=== PATIENT | female | born 1975 | race Caucasian/White ===

== ENCOUNTER 2017-02-12 06:58 | Inpatient (IN) ==
--- NOTE | 2017-02-12 07:10 | Emergency Department Report ---
Asthma HPI - General Chief Complaint: Upper Respiratory Infection Stated Complaint: diff breathing Time Seen by Provider: 02/12/17 07:09 Source: patient, family Mode of arrival: ambulatory Limitations: no limitations - History of Present Illness HPI Narrative: Patient is a 41-year-old female CHF COPD. Patient presents the ER for evaluation of difficulty breathing. Patient was seen with mild difficulty breathing 3 days ago in the emergency department given DuoNeb with improvement of symptoms. Patient was discharged home on prednisone. Patient follow-up primary medical physician on Friday, was given a nebulizer and 2 nebs at home, however has not been improving. Patient increasing shortness of air for the last 2 days, this morning significant shortness of air so decided present to the ER for evaluation. On arrival patient oxygen saturation 88%, placed on 2 L by nasal cannula. MD complaint: shortness of breath, wheezing Onset (ago): day(s) (3-4 days) Severity: moderate Associated symptoms: productive cough Treatments Prior to Arrival: inhaled bronchodilator - Related Data Home Medications Medication Instructions Recorded Confirmed Cholecalciferol (Vitamin D3) 5,000 unit PO DAILY 01/12/17 03/05/17 [Vitamin D3] Furosemide [Lasix] 20 mg PO BID 01/12/17 03/05/17 Levothyroxine Sodium 100 mcg PO ACB 01/12/17 03/05/17 Linagliptin [Tradjenta] 5 mg PO DAILY 01/12/17 03/05/17 Loratadine [Claritin] 10 mg PO DAILY 01/12/17 03/05/17 Pantoprazole Tab [Protonix Tab] 20 mg PO ACB 01/12/17 03/05/17 Pregabalin [Lyrica] 200 mg PO TID 01/12/17 03/05/17 Venlafaxine HCl [Venlafaxine HCl 37.5 mg PO DAILY 01/12/17 03/05/17 ER] Hydrocodone/APAP 7.5/325 [[place] 1 tab PO Q6HPRN PRN 01/13/17 03/05/17 7.5/325] Fluticasone/Salmeterol 250/50 1 puff INH BID 02/23/17 03/05/17 [Advair 250-50 Diskus] Insulin Glargine,Hum.rec.anlog 20 unit SQ AMI 02/23/17 03/05/17 [Grant Bacon] Insulin Glargine,Hum.rec.anlog 50 unit SQ HS 02/23/17 03/05/17 [Toumineo Solostar] Ipatropium/Albuterol [Combivent 1 puff INH QID 02/23/17 03/05/17 Respimat Inhaler] Klor-Con Sprinkle (potassium 20 meq PO DAILY cap 03/10/17 chloride ER) 10 mEq capsule Zantac (Ranitidine) 150 mg capsule 150 mg PO HS cap 03/10/17 trazodone 50 mg tablet 50 mg PO HS tab 03/10/17 Previous Rx's Medication Instructions Recorded Lisinopril [Prinivil] 5 mg PO HS #30 tab 02/17/17 OneTouch Verio strips See Dose Instructions .ROUTE 03/10/17 .MEDSUPPLY #150 each NS lancets 33 gauge See Dose Instructions .ROUTE 03/10/17 .MEDSUPPLY #150 each Allergies Allergy/AdvReac Type Severity Reaction Status Date / Time celecoxib Allergy Unknown Verified 03/10/17 08:36 cephalexin Allergy Unknown Rash Verified 03/10/17 08:36 Iodinated Contrast- Oral and Allergy Unknown Hives Verified 03/10/17 08:36 IV Dye tramadol Allergy Unknown Shortness Verified 03/10/17 08:36 of Breath (Air) Sulfa (Sulfonamide Allergy Hives Verified 03/10/17 08:36 Antibiotics) Review of Systems Constitutional: Reports: weakness. Denies: fever, chills ENT: Denies: throat pain, dental pain Cardiovascular: Reports: chest pain, dyspnea on exertion. Denies: palpitations Respiratory: Reports: cough, dyspnea, wheezes Gastrointestinal: Denies: abdominal pain, nausea, vomiting Genitourinary: Denies: dysuria, frequency Musculoskeletal: Denies: back pain, joint swelling Neurological: Reports: headache. Denies: weakness Psychiatric: Reports: auditory hallucinations. 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 Need to see glucose profile. Will need another medication added as well. Diabetic peripheral neuropathy associated with type 2 diabetes mellitus ( Chronic Medical ~03/10/17) Needs better glucose control. Callus of foot (Chronic Medical ~03/10/17) Needs emollient. Hypothyroidism (Chronic Medical ~2014) Need to check levels. Nontoxic single thyroid nodule (Chronic Medical ~2014) Small, nonpalpable. Should characterize with sonogram, then rebiopsy if necessary. Morbid obesity with BMI of 40.0-44.9, adult (Chronic Medical) Surgical History: excision of hemorrhiods Family History: Family History (Last Reviewed 03/10/17 @ 08:48 by Ignacio Pond MD) Father Diabetes Heart disease Mother Heart attack - Social History Smoking status: Current every day smoker Substance use type: does not use Physical Exam - Limitations Limitations: no limitations - General General appearance: alert, in no apparent distress - ENT ENT exam: Present: normal oropharynx, mucous membranes moist - Neck Neck exam: Present: trachea midline - Chest Chest inspection: Present: symmetric chest wall rise. Absent: tenderness - Respiratory Respiratory exam: Present: respiratory distress, wheezes, accessory muscle use, prolonged expiratory phase. Absent: normal lung sounds bilaterally - Cardiovascular Cardiovascular exam: Present: regular rate, normal rhythm, normal heart sounds - Abdominal Exam Abdominal exam: Present: soft. Absent: distention - Back Exam Back exam: Present: full ROM. Absent: tenderness, CVA tenderness (R) - Skin Skin exam: Present: warm, dry - Neurological Exam Neurological exam: Present: alert, oriented X3 - Psychiatric Psychiatric exam: Present: normal affect, normal mood Course Vital Signs Temperature 99.5 F 02/12/17 07:07 Pulse Rate 109 H 02/12/17 07:07 Respiratory Rate 26 H 02/12/17 07:07 Blood Pressure 130/67 02/12/17 07:07 Pulse Oximetry 88 L 02/12/17 07:07 Temperature 96.3 F L 02/17/17 07:47 Pulse Rate 75 02/17/17 07:47 Respiratory Rate 16 02/17/17 16:39 Blood Pressure 119/79 02/17/17 07:47 Pulse Oximetry 93 02/17/17 11:24 Dyspnea - Differential Diagnosis Differential diagnosis: Likely: Acute exacerbation, Status asthmaticus, Acute asthmatic bronchitis, Pneumonia, COPD exacerbation, Pulmonary edema systolic, Pulmonary edema dystolic - Medical Records Attestation: I reviewed the patient's medical records. - Lab Data Attestation: I reviewed the patient's lab results. Result diagrams: 02/16/17 04:31 02/16/17 04:31 Lab Results 02/12/17 02/12/17 02/12/17 Range/Units 07:56 07:56 07:56 WBC 27.7 H* (4.5-11.0) T/MM3 RBC 4.92 (4.00-5.20) M/MM3 Hgb 12.5 (12-16) GM/DL Hct 39.5 (36-46) % MCV 80.3 (80-100) UM3 MCH 25.4 L (26-34) UUG MCHC 31.6 (31-37) GM/DL RDW Std Deviation 48.2 (36.9-50.2) FL Plt Count 359 (130-400) T/MM3 MPV 9.3 L (9.4-12.4) UM3 Immature Gran % (Auto) Not performed Neut % (Auto) Not performed Lymph % (Auto) Not performed [place] % (Auto) Not performed Eos % (Auto) Not performed Baso % (Auto) Not performed Neut # Not performed Lymph # Not performed [place] # Not performed Eos # Not performed Baso # Not performed Abs Immat Gran (auto) Not performed Neutrophils % (Manual) 70.0 H (33-66) % Band Neutrophils % 1.0 (0-6) % Lymphocytes % (Manual) 22.0 L (23-45) % Monocytes % (Manual) 5.0 (0-9.0) % Eosinophils % (Manual) 1.0 (0-4) % Metamyelocytes % 1.0 H (0-0) % Neutrophils # (Manual) 19.4 H (1.8-7.7) T/MM3 Band Neutrophils # 0.3 T/MM3 Lymphocytes # (Manual) 6.1 H (1-4.8) T/MM3 Monocytes # (Manual) 1.4 H (0-0.8) T/MM3 Eosinophils # (Manual) 0.3 (0-0.5) T/MM3 Metamyelocytes # 0.3 T/MM3 Poikilocytosis 1+ Anisocytosis 1+ RBC Morph Comment Abnormal D-Dimer < 150 (0-230) NG/ML ABG pH (7.350-7.450) ABG pCO2 (34-45) MMHG ABG pO2 (80-100) MMHG ABG HCO3 (22-26) MEQ/L ABG Total CO2 (23-27) MEQ/L ABG O2 Saturation (95.0-98.0) % ABG Base Excess (-2.0-2.0) MMOL/L O2 Delivery Method FiO2 (liters per min) Turbidity < 20 (0-20) Sodium 141 (134-144) MEQ/L Potassium 3.1 L (3.6-5) MEQ/L Chloride 99 (98-107) MEQ/L Carbon Dioxide 29 (22-30) MEQ/L Anion Gap 13 (5-15) MEQ/L BUN 8.0 (7-17) MG/DL Creatinine 0.6 L (0.7-1.2) MG/DL GFR Calculation 111 BUN/Creatinine Ratio 13 (6-26) RATIO Glucose 177 H (65-110) MG/DL Calculated Osmolality 273 (261-280) MOSM/KG Calcium 9.2 (8.4-10.2) MG/DL Total Bilirubin 0.50 (0.20-1.30) MG/DL Icterus Index < 2 (0-7) AST 25 (14-36) U/L ALT 32 (9-52) U/L Alkaline Phosphatase 79 (38-126) U/L Troponin I < 0.012 (0-0.12) ng/ml B-Natriuretic Peptide 220 H (0-175) pg/mL Total Protein 6.8 (6.3-8.2) G/DL Albumin 3.8 (3.5-5.0) G/DL Globulin 3.0 (2.4-3.6) G/DL Albumin/Globulin Ratio 1.3 (1.1-2.2) RATIO Specimen Hemolysis < 15 (0-25) Adenovirus (PCR) (Negative) B.parapertussis DNA PCR (Negative) C. pneumoniae DNA (PCR) (Negative) Coronavirus OC43 (PCR) (Negative) Coronavirus HKU1 (PCR) (Negative) Coronavirus 229E (PCR) (Negative) Coronavirus NL63 (PCR) (Negative) Human Metapneumovirus (Negative) Influenza Type A (PCR) (Negative) Influenza Type B (PCR) (Negative) M. pneumoniae (PCR) (Negative) Parainfluenza 1 (PCR) (Negative) Parainfluenza 2 (PCR) (Negative) Parainfluenza 3 (PCR) (Negative) Parainfluenza 4 (PCR) (Negative) RSV (PCR) (Negative) Entero/Rhino (PCR) (Negative) 02/12/17 02/12/17 Range/Units 07:56 09:30 WBC (4.5-11.0) T/MM3 RBC (4.00-5.20) M/MM3 Hgb (12-16) GM/DL Hct (36-46) % MCV (80-100) UM3 MCH (26-34) UUG MCHC (31-37) GM/DL RDW Std Deviation (36.9-50.2) FL Plt Count (130-400) T/MM3 MPV (9.4-12.4) UM3 Immature Gran % (Auto) Neut % (Auto) Lymph % (Auto) [place] % (Auto) Eos % (Auto) Baso % (Auto) Neut # Lymph # [place] # Eos # Baso # Abs Immat Gran (auto) Neutrophils % (Manual) (33-66) % Band Neutrophils % (0-6) % Lymphocytes % (Manual) (23-45) % Monocytes % (Manual) (0-9.0) % Eosinophils % (Manual) (0-4) % Metamyelocytes % (0-0) % Neutrophils # (Manual) (1.8-7.7) T/MM3 Band Neutrophils # T/MM3 Lymphocytes # (Manual) (1-4.8) T/MM3 Monocytes # (Manual) (0-0.8) T/MM3 Eosinophils # (Manual) (0-0.5) T/MM3 Metamyelocytes # T/MM3 Poikilocytosis Anisocytosis RBC Morph Comment D-Dimer (0-230) NG/ML ABG pH 7.510 H (7.350-7.450) ABG pCO2 40 (34-45) MMHG ABG pO2 55 L (80-100) MMHG ABG HCO3 32 H (22-26) MEQ/L ABG Total CO2 33.1 H (23-27) MEQ/L ABG O2 Saturation 91.0 L (95.0-98.0) % ABG Base Excess 8.2 H (-2.0-2.0) MMOL/L O2 Delivery Method Nasal cannula, liter FiO2 (liters per min) 6 Turbidity (0-20) Sodium (134-144) MEQ/L Potassium (3.6-5) MEQ/L Chloride (98-107) MEQ/L Carbon Dioxide (22-30) MEQ/L Anion Gap (5-15) MEQ/L BUN (7-17) MG/DL Creatinine (0.7-1.2) MG/DL GFR Calculation BUN/Creatinine Ratio (6-26) RATIO Glucose (65-110) MG/DL Calculated Osmolality (261-280) MOSM/KG Calcium (8.4-10.2) MG/DL Total Bilirubin (0.20-1.30) MG/DL Icterus Index (0-7) AST (14-36) U/L ALT (9-52) U/L Alkaline Phosphatase (38-126) U/L Troponin I (0-0.12) ng/ml B-Natriuretic Peptide (0-175) pg/mL Total Protein (6.3-8.2) G/DL Albumin (3.5-5.0) G/DL Globulin (2.4-3.6) G/DL Albumin/Globulin Ratio (1.1-2.2) RATIO Specimen Hemolysis (0-25) Adenovirus (PCR) Negative (Negative) B.parapertussis DNA PCR Negative (Negative) C. pneumoniae DNA (PCR) Negative (Negative) Coronavirus OC43 (PCR) Negative (Negative) Coronavirus HKU1 (PCR) Negative (Negative) Coronavirus 229E (PCR) Negative (Negative) Coronavirus NL63 (PCR) Negative (Negative) Human Metapneumovirus Negative (Negative) Influenza Type A (PCR) Negative (Negative) Influenza Type B (PCR) Negative (Negative) M. pneumoniae (PCR) Negative (Negative) Parainfluenza 1 (PCR) Negative (Negative) Parainfluenza 2 (PCR) Negative (Negative) Parainfluenza 3 (PCR) Negative (Negative) Parainfluenza 4 (PCR) Negative (Negative) RSV (PCR) Negative (Negative) Entero/Rhino (PCR) Detected A (Negative) - Radiology Data Attestation: I reviewed the patient's radiology results. Chest x-ray: Improved edema cardiomegaly, no acute infiltrates - EKG Data EKG #1 EKG attestation: Yes: I reviewed and interpreted this EKG. Rate [ED.COU.EKR]: tachycardia Rhythm: NSR [place]/QRS: normal Interpretation: no acute changes Disposition Clinical Impression: COPD, Rhinovirus Disposition: 02 To [facility] [place] Acute Care Condition: Improved - Seen By: physician
[2017-02-12] MEDS ORDERED: METHYLPREDNISOLONE SOD SUCC 125mg/2ml INJECTION IVP ONE (07:13)
[2017-02-12] MEDS ORDERED: ALBUTEROL/IPRATROPIUM 2.5mg-0.5mg/3ml NEB IH ONE (07:13)
[2017-02-12] MEDS ORDERED: BENZONATATE 100 MG CAPSULE PO ONE (07:14)
[2017-02-12] MEDS ORDERED: ALBUTEROL/IPRATROPIUM 2.5mg-0.5mg/3ml NEB AEROSOL ONE (07:19)
--- NOTE | 2017-02-12 07:52 | XRay Report ---
INDICATION: cough shortness of air wheezing O2 requiring PROCEDURE: CHEST 2-VIEWS UPRIGHT (PA & LAT) Encounter: Initial COMPARISON: February 08, 2017 FINDINGS: New patchy areas of bilateral airspace consolidation. No pleural effusion or pneumothorax. Heart size and mediastinal contours are stable. Poststernotomy changes. Impression: New bilateral airspace disease could be due to atypical/viral pneumonia. .
[2017-02-12] MEDS ORDERED: ACETAMINOPHEN 500 MG TABLET PO ONE (08:21)
[2017-02-12] MEDS ORDERED: ALBUTEROL 2.5mg/3ml (0.083%) NEB AEROSOL ONE (08:45)
[2017-02-12] MEDS ORDERED: HYDROCORTISONE 2.5% CREAM 30gm RECTALLY PRN (10:06)
[2017-02-12] MEDS ORDERED: HYDROCORTISONE 1% CREAM 28.35gm TOP PRN (10:06)
[2017-02-12] MEDS: HYDROCODONE/APAP 7.5 MG/325 MG TABLET PO PRN ×2 (11:46→21:52)
[2017-02-12] MEDS: LEVOFLOXACIN PB 750 MG/150 ML BAG IV SCH (11:46)
[2017-02-12] MEDS: INSULIN REGULAR, HUMAN 100 UNIT/ML INJECTION SQ PRN ×3 (11:53→20:35)
[2017-02-12] MEDS: AMLODIPINE 5 MG TABLET PO SCH (13:05)
[2017-02-12] MEDS: ALBUTEROL/IPRATROPIUM 2.5mg-0.5mg/3ml NEB ORAL INH SCH ×3 (13:41→19:21)
[2017-02-12] MEDS: PREGABALIN 100 MG CAPSULE PO SCH ×2 (15:50→20:25)
--- NOTE | 2017-02-12 15:52 | History & Physical Report ---
History of Present Illness Date: 02/12/17 Chief complaint: Shortness of breath HPI: Called to examine pt in the ED due to acute bronchospasm and respiratory failure. Pt was on BiPap when I saw her in the ED. Pt was mentally clear, awake alert and oriented. She states she was smoking till last week when she decided to quit. Pt got worse over the last 24 hrs - denies any household contacts, has not been [place], denies having exotic pets, gives H.O asthma in the past. Pt is a FULL CODE> Review of Systems Comprehensive ROS: completed and no additional positive findings except those as stated PFSH Patient Stated Medical History Congestive Heart Failure Yes Hypertension Yes Other Cardiology Yes: ATRIAL SEPTAL DEFECT CHILD Bronchitis Yes: Jan 2017 Chronic Obstructive Pulmonary Yes Disease (COPD) Sleep Apnea Yes Diabetes Mellitus Type 2 Yes Gastroesophageal Reflux Yes Disease Other GI Yes: HEMORRHOIDS Osteoarthritis Yes Other Musculoskeletal Yes: FIBROMYALGIA Depression Yes Post Traumatic Stress Disorder Yes Other Behavioral Health Yes: BORDERLINE PERSONALITY Other Reproductive Yes: in menopause Surgical History: excision of hemorrhiods - Social History Smoking status: Current every day smoker Substance use type: does not use Current residence: Apartment/Private Home Medications Home Medications Medication Instructions Recorded Confirmed Type Amlodipine [Norvasc] 5 mg PO DAILY 01/12/17 02/12/17 History Brexpiprazole [Rexulti] 4 mg PO DAILY 01/12/17 02/12/17 History Chlorthalidone 25 mg PO DAILY 01/12/17 02/12/17 History Cholecalciferol (Vitamin D3) 5,000 unit PO DAILY 01/12/17 02/12/17 History [Vitamin D3] Estrogens, Conjugated [Premarin] 0.45 mg PO DAILY 01/12/17 02/12/17 History Furosemide [Lasix] 20 mg PO DAILY 01/12/17 02/12/17 History Insulin Glargine,Hum.rec.anlog 20 unit SQ AMI 01/12/17 02/12/17 History [Toujeo Solostar] Insulin Glargine,Hum.rec.anlog 50 unit SQ WS 01/12/17 02/12/17 History [Toujeo Solostar] Levothyroxine Sodium 100 mcg PO ACB 01/12/17 02/12/17 History Linagliptin [Tradjenta] 5 mg PO DAILY 01/12/17 02/12/17 History Loratadine [Claritin] 10 mg PO DAILY 01/12/17 02/12/17 History Pantoprazole Tab [Protonix Tab] 40 mg PO ACB 01/12/17 02/12/17 History Potassium Chloride [K-Dur] 20 meq PO WB 01/12/17 02/12/17 History Pravastatin Sodium [Pravachol] 40 mg PO DAILY 01/12/17 02/12/17 History Pregabalin [Lyrica] 200 mg PO TID 01/12/17 02/12/17 History Spironolactone [Aldactone] 25 mg PO DAILY 01/12/17 02/12/17 History Venlafaxine HCl [Venlafaxine HCl 37.5 mg PO DAILY 01/12/17 02/12/17 History ER] hydrOXYzine pamoate [Vistaril] 50 mg PO TID PRN 01/12/17 02/12/17 History Hydrocodone/APAP 7.5/325 [[place] 1 tab PO Q6HPRN PRN 01/13/17 02/12/17 History 7.5/325] Hydrocortisone 1% Cream 1 applic TOP PRN PRN 01/25/17 02/12/17 History [Cortizone-10 Cream] Ibuprofen 400 mg PO Q4H PRN 02/08/17 02/12/17 History Albuterol/Ipratropium [Duoneb] 1 unit AEROSOL Q4H PRN 02/12/17 02/12/17 History Allergies Allergy/AdvReac Type Severity Reaction Status Date / Time celecoxib [From Celebrex] Allergy Unknown Verified 02/12/17 09:24 cephalexin [From Keflex] Allergy Unknown Rash Verified 02/12/17 09:24 Iodinated Contrast- Oral and Allergy Unknown Verified 02/12/17 09:24 IV Dye tramadol [From Ultram] Allergy Unknown Shortness Verified 02/12/17 09:24 of Breath (Air) Sulfa (Sulfonamide Allergy Hives Verified 02/12/17 09:24 Antibiotics) Exam Vital Signs: Temperature 98.2 F 02/12/17 12:00 Pulse Rate 83 02/12/17 15:47 Respiratory Rate 33 H 02/12/17 14:59 Blood Pressure 139/73 02/12/17 15:00 Pulse Oximetry 93 02/12/17 14:59 Telemetry Rhythm: Sinus Rhythm Height/Weight/BMI: Height 5 ft 3 in Weight 126.5 kg Body Mass Index 49.4 - Constitutional Present: moderate distress - Routine HEENT Exam Head: Present: normocephalic, atraumatic Eye: Present: EOMI, PERRL - Routine Neck Exam Present: supple. Absent: JVD, carotid bruit - Routine Respiratory Exam Present: accessory muscle use, prolonged expiratory phase, wheezes - Routine Cardiovascular Exam Present: RRR, S1, S2 - Routine Abdominal Exam Present: soft, non distended, non tender - Routine Extremities Exam Absent: cyanosis, clubbing, edema - Routine Skin Exam Present: intact - Routine Neurological Exam Present: alert, oriented X3, CN II-XII intact, moving all extremities - Routine Psychiatric Exam Present: normal affect, cooperative, good insight, good judgment Results - Labs CBC & Chem 7: 02/12/17 07:56 02/12/17 07:56 Microbiology Results: Microbiology 02/12/17 10:40 Peripheral/Iv Start Blood Culture - Preliminary Culture Initiated - Results Pending 02/12/17 10:30 Peripheral/Iv Start Blood Culture - Preliminary Culture Initiated - Results Pending Assessment and Plan DVT Prophylaxis: SCD's GI Prophylaxis: Protonix Resuscitation Status: Full Code Assessment and Plan: This is a 41 YO female that came with worsening bronchospasm and was found to have bilateral infiltates suggestive of Viral URI - PCR did confirm a viral infection. Plan is to admit to the ICU, continue supportive care with BIPAP, steroids antibiotics, pulmonary toilet. Also pt has DM and will have higher BS, so will keep an eye on her BS and use sliding scale to correct it. Diagnosis 1) Asthmatic bronchitis with ? of viral PNA. Pt has hypoxemia - ABG show elevated a-A gradient and Alkalosis (metabolic) with poor respiratory compensation at present. - PCR positive for Rhinovirus - Continue BIPAP - Antibiotics - Levaquin - Solumedrol Q6H + Accuchecks and sliding scale. - Recheck CXR in the AM 2) H.O Type II DM - Continue with lantus 20U/day - Cover with sliding scale as well. 3) HTN - EKG showed inverted T waves in V1 and V2 - TnI negative check TnI x 2 times more and check EKG in the AM. 4) Hypothyoridism - Continue present Rx. - Check TSH in the AM. 5) Hypokalemia with K of 3.1 - Will replace orally and F/U in the AM. PREVENTION DVT - SCD'S PUD - PPI (IV) - Time spent with patient 25 - 35 minutes Sepsis Assessment - Evaluation Sepsis screening result: Sepsis Risk Hospital Course Summary Disclaimer: The visit summary below is not to be considered part of the above Progress Note.
[2017-02-12] MEDS: IBUPROFEN 200 MG TABLET PO PRN ×2 (15:53→20:25)
[2017-02-12] MEDS: NS 1,000 ML IV SCH (16:24)
[2017-02-12] MEDS: METHYLPREDNISOLONE SOD SUCC 125mg/2ml INJECTION IVP SCH (17:20)
[2017-02-12] MEDS: PRAVASTATIN 40 MG TABLET PO SCH (20:25)
[2017-02-12] MEDS: ALBUTEROL 2.5mg/3ml (0.083%) NEB AEROSOL PRN (22:08)
[2017-02-13] MEDS: METHYLPREDNISOLONE SOD SUCC 125mg/2ml INJECTION IVP SCH ×3 (01:05→16:34)
[2017-02-13] MEDS: SALINE FLUSH 10ml SYRINGE IVF PRN ×2 (01:06→20:52)
[2017-02-13] MEDS: ALBUTEROL 2.5mg/3ml (0.083%) NEB AEROSOL PRN (02:00)
[2017-02-13] MEDS: GUAIFENESIN/CODEINE 5ml ORAL LIQUID PO PRN ×3 (02:34→17:19)
[2017-02-13] MEDS: LEVOTHYROXINE 100 MCG TABLET PO SCH (06:10)
[2017-02-13] MEDS: PANTOPRAZOLE 40 MG TABLET PO SCH (06:11)
[2017-02-13] MEDS: IBUPROFEN 200 MG TABLET PO PRN (06:13)
[2017-02-13] MEDS: INSULIN REGULAR, HUMAN 100 UNIT/ML INJECTION SQ PRN ×3 (06:22→17:19)
[2017-02-13] MEDS: ALBUTEROL/IPRATROPIUM 2.5mg-0.5mg/3ml NEB ORAL INH SCH ×4 (06:39→19:22)
[2017-02-13] MEDS: NS 1,000 ML IV SCH (06:45)
[2017-02-13] MEDS ORDERED: INSULIN GLARGINE 100unit/ml INJECTION SQ SCH ×2 (07:30→21:00)
--- NOTE | 2017-02-13 08:15 | XRay Report ---
Indication: f/u on PNA PROCEDURE: XR chest 1V: Encounter: Initial Comparison: February 12, 2017 Findings: Continued patchy airspace disease in the mid lung zones bilaterally without significant change allowing for differences in technique. No pneumothorax or gross pleural effusion. Heart size and mediastinal contours are stable. Impression: No significant change in diffuse bilateral infiltrates. .
[2017-02-13] MEDS: LORATADINE 10 MG TABLET PO SCH (09:24)
[2017-02-13] MEDS: PREGABALIN 100 MG CAPSULE PO SCH ×3 (09:24→20:53)
[2017-02-13] MEDS: Venlafaxine XR 37.5 MG CAPSULE (24hr) PO SCH (09:25)
[2017-02-13] MEDS: AMLODIPINE 5 MG TABLET PO SCH (09:25)
[2017-02-13] MEDS: SPIRONOLACTONE 25 MG TABLET PO SCH (09:26)
--- NOTE | 2017-02-13 10:28 | Progress Note ---
Subjective: F/U: Pneumonia, Acute hypoxic respiratory failure Doing fair. Still very SOA. BiPAP helping significantly, makes work of breathing much easier. Notes cough and chest congestion. No sinus congestion/ pressure. Had slight sinus drainage, but decreased once BiPAP started. No nausea or ab pain. Stools slow (had diarrhea days prior to admission, but since resolved). Appetite with decreased. Urinating well. Feels very tired and weak in general. Objective Vital signs: Temperature 98.2 F 02/13/17 04:00 Pulse Rate 79 02/13/17 07:00 Respiratory Rate 24 02/13/17 07:00 Blood Pressure 147/73 H 02/13/17 07:00 Pulse Oximetry 90 02/13/17 07:00 Height/Weight/BMI: Height 1.6 m Weight 126.5 kg Body Mass Index 49.4 - Constitutional Present: mild distress, well nourished, well developed, morbidly obese, cooperative. Absent: agitated, somnolent, obtunded - Routine HEENT Exam Head: Present: normocephalic, atraumatic Eye: Present: EOMI, PERRL - Routine Respiratory Exam Present: decreased breath sounds, rhonchi, wheezes, distant breath sounds, diminished air movement - Routine Cardiovascular Exam Present: RRR - Routine Abdominal Exam Present: soft, non distended, non tender. Absent: normoactive bowel sounds ( Decreased ), rebound, guarding - Routine Extremities Exam Present: no edema, pulses intact. Absent: cyanosis, clubbing - Routine Musculoskeletal Exam Musculoskeletal: Present: no clubbing or cyanosis, normal strength - Routine Skin Exam Present: intact, dry, warm - Routine Neurological Exam Present: alert, oriented X3, CN II-XII intact, moving all extremities, vision grossly intact, hearing grossly intact. Absent: motor deficit - Routine Psychiatric Exam Present: normal affect, normal thought process, cooperative. Absent: agitated Results - Labs CBC & Chem 7: 02/13/17 05:09 02/13/17 05:09 Microbiology Results: Microbiology 02/12/17 10:40 Peripheral/Iv Start Blood Culture - Preliminary Culture Initiated - Results Pending 02/12/17 10:30 Peripheral/Iv Start Blood Culture - Preliminary Culture Initiated - Results Pending - ABG Interpretation ABG results: 02/13/17 06:25 VBG pH 7.380 VBG pCO2 52 VBG pO2 58 H VBG HCO3 31 H VBG Total CO2 32.4 VBG O2 Saturation 89.0 VBG Base Excess 4.5 H Assessment and Plan Resuscitation Status: Full Code Assessment and Plan: Assessment Acute Hypoxic respiratory failure Rhinovirus - Possible viral pneumonia Leukocytosis COPD/Asthma LISA Type II DM - insulin requiring HTN Hypothyroidism Hypokalemia (POA) - resolved Morbid obesity with BMI 49.4 Plan Continue with supplemental O2/BiPAP for respiratory support. Add routine Mucinex DM BID to help decrease cough and congestion. Acapella and IS to help pulmonary toilet. Will continue with levofloxacin and Solu-Medrol due to asthma exacerbation with infiltrate. Blood sugars with elevation - likely secondary to steroids. Continue ISS and increase Lantus to 30 units at night. Lorazepam 0.5mg IV q 4 hours prn anxiety due to air hunger. Medical status stabilize to the point patient can transfer to medical floor to continue care. Case discussed with CM and CCU nursing. Times spent with patient care 25 minutes. - Time spent with patient 25 - 35 minutes Hospital Course Summary Disclaimer: The visit summary below is not to be considered part of the above Progress Note. Hospital Course: 02/12/17: Admission to CCU This is a 41 YO female that came with worsening bronchospasm and was found to have bilateral infiltates suggestive of Viral URI - PCR did confirm a viral infection. Plan is to admit to the ICU, continue supportive care with BIPAP, steroids antibiotics, pulmonary toilet. Also pt has DM and will have higher BS, so will keep an eye on her BS and use sliding scale to correct it. Diagnosis 1) Asthmatic bronchitis with ? of viral PNA. Pt has hypoxemia - ABG show elevated a-A gradient and Alkalosis (metabolic) with poor respiratory compensation at present. - PCR positive for Rhinovirus - Continue BIPAP - Antibiotics - Levaquin - Solumedrol Q6H + Accuchecks and sliding scale. - Recheck CXR in the AM 2) Type II DM - Continue with lantus 20U/day - Cover with sliding scale as well. 3) HTN - EKG showed inverted T waves in V1 and V2 - TnI negative check TnI x 2 times more and check EKG in the AM. 4) Hypothyoridism - Continue present Rx. - Check TSH in the AM. 5) Hypokalemia with K of 3.1 - Will replace orally and F/U in the AM. PREVENTION DVT - SCD'S PUD - PPI (IV) 02/13/17 Tolerating BiPAP to help respiratory support. Continue with supplemental O2/BiPAP for respiratory support. Add routine Mucinex DM BID to help decrease cough and congestion. Acapella and IS to help pulmonary toilet. Will continue with levofloxacin and Solu-Medrol due to asthma exacerbation with infiltrate. Blood sugars with elevation - likely secondary to steroids. Continue ISS and increase Lantus to 30 units at night. Lorazepam 0.5mg IV q 4 hours prn anxiety due to air hunger. Medical status stabilize to the point patient can transfer to medical floor to continue care.
[2017-02-13] MEDS: LEVOFLOXACIN PB 750 MG/150 ML BAG IV SCH (10:34)
[2017-02-13] MEDS: ESTROGENS, CONJUGATED 0.45 MG TABLET PO SCH (11:44)
[2017-02-13] MEDS: GUAIFENESIN/D-METHORPHAN 600mg/30mg TABLET PO SCH ×2 (11:45→20:54)
[2017-02-13] MEDS: HYDROCODONE/APAP 7.5 MG/325 MG TABLET PO PRN ×2 (12:33→18:38)
[2017-02-13] MEDS ORDERED: INSULIN REGULAR, HUMAN 100 UNIT/ML INJECTION SQ ONE (20:45)
[2017-02-13] MEDS: PRAVASTATIN 40 MG TABLET PO SCH (20:54)
[2017-02-14] MEDS: METHYLPREDNISOLONE SOD SUCC 125mg/2ml INJECTION IVP SCH ×3 (00:30→17:22)
[2017-02-14] MEDS: GUAIFENESIN/CODEINE 5ml ORAL LIQUID PO PRN ×3 (00:30→20:43)
[2017-02-14] MEDS: INSULIN REGULAR, HUMAN 100 UNIT/ML INJECTION SQ PRN ×4 (06:14→20:54)
[2017-02-14] MEDS: LEVOTHYROXINE 100 MCG TABLET PO SCH (06:15)
[2017-02-14] MEDS: PANTOPRAZOLE 40 MG TABLET PO SCH (06:15)
[2017-02-14] MEDS: SALINE FLUSH 10ml SYRINGE IVF PRN ×3 (06:15→17:24)
[2017-02-14] MEDS: ALBUTEROL/IPRATROPIUM 2.5mg-0.5mg/3ml NEB ORAL INH SCH ×2 (07:25→19:07)
[2017-02-14] MEDS: SPIRONOLACTONE 25 MG TABLET PO SCH (09:24)
[2017-02-14] MEDS: ESTROGENS, CONJUGATED 0.45 MG TABLET PO SCH (09:25)
[2017-02-14] MEDS: GUAIFENESIN/D-METHORPHAN 600mg/30mg TABLET PO SCH ×2 (09:25→20:33)
[2017-02-14] MEDS: AMLODIPINE 5 MG TABLET PO SCH (09:25)
[2017-02-14] MEDS: LORATADINE 10 MG TABLET PO SCH (09:25)
[2017-02-14] MEDS: PREGABALIN 100 MG CAPSULE PO SCH ×3 (09:25→20:31)
[2017-02-14] MEDS: Venlafaxine XR 37.5 MG CAPSULE (24hr) PO SCH (09:25)
[2017-02-14] MEDS: LEVOFLOXACIN PB 750 MG/150 ML BAG IV SCH (09:26)
[2017-02-14] MEDS ORDERED: INSULIN GLARGINE 100unit/ml INJECTION SQ ONE (09:29)
[2017-02-14] MEDS: HYDROCODONE/APAP 7.5 MG/325 MG TABLET PO PRN ×2 (09:39→20:31)
[2017-02-14] MEDS ORDERED: FLUCONAZOLE 150 MG TABLET PO ONE (11:08)
--- NOTE | 2017-02-14 11:12 | Progress Note ---
Subjective: F/U: Pneumonia, Acute hypoxic respiratory failure Breathing slightly easier today-able to move more without becoming as winded. Still needing O2, and Sats decreased to mid 80s earlier despite O2. Cough less- feels Mucinex DM helping. Chest wall sore from coughing. Mouth feels dry and sore. Does have worry about potential yeast due to steroids and antibiotics. Eating well-no nausea or ab pain. Bowels moving. Urinating well. No f/c. Objective Vital signs: Temperature 96 F L 02/14/17 07:39 Pulse Rate 72 02/14/17 07:39 Respiratory Rate 19 02/14/17 07:22 Blood Pressure 150/98 H 02/14/17 07:39 Pulse Oximetry 94 02/14/17 07:39 Height/Weight/BMI: Height 1.6 m Weight 130.2 kg Body Mass Index 49.4 - Constitutional Present: mild distress, well nourished, well developed, morbidly obese, cooperative - Routine HEENT Exam Head: Present: normocephalic, atraumatic Eye: Present: EOMI, PERRL ENT: Present: mucous membranes dry, dentition normal (Slight white coating on tongue ) - Routine Respiratory Exam Present: decreased breath sounds, distant breath sounds, diminished air movement. Absent: respiratory distress, wheezes - Routine Cardiovascular Exam Present: RRR, no murmur - Routine Abdominal Exam Present: soft, normoactive bowel sounds, non distended, non tender - Routine Extremities Exam Present: cyanosis, clubbing, edema (+2 BLE ), pulses intact - Routine Musculoskeletal Exam Musculoskeletal: Present: no clubbing or cyanosis, normal strength - Routine Skin Exam Present: intact, dry, warm - Routine Neurological Exam Present: alert, oriented X3, CN II-XII intact, moving all extremities, vision grossly intact, hearing grossly intact. Absent: motor deficit - Routine Psychiatric Exam Present: normal affect, normal thought process, cooperative, good insight, good judgment. Absent: anxious Results - Labs CBC & Chem 7: 02/14/17 03:47 02/14/17 03:47 Microbiology Results: Microbiology 02/12/17 10:40 Peripheral/Iv Start Blood Culture - Preliminary No Growth After 2 Days 02/12/17 10:30 Peripheral/Iv Start Blood Culture - Preliminary No Growth After 2 Days - ABG Interpretation ABG results: 02/13/17 06:25 VBG pH 7.380 VBG pCO2 52 VBG pO2 58 H VBG HCO3 31 H VBG Total CO2 32.4 VBG O2 Saturation 89.0 VBG Base Excess 4.5 H Assessment and Plan DVT Prophylaxis: SCD's Assessment and Plan: Assessment Acute hypoxic respiratory failure Rhinovirus - Possible viral pneumonia/possible bacterial Leukocytosis COPD/Asthma LISA Type II DM - insulin requiring HTN HDL Hypothyroidism Hypokalemia (POA) - resolved GERD Thrush Morbid obesity with BMI 49.4 Plan Diflucan 150mg orally x1 to cover oral thrush (pt also worries about risk of developing vaginal yeast problems). Culturelle TID with meals for bowel protection in light of antibiotic use. Wean O2 as able. Restart Lasix. Aspercreme to help chest chest wall pain. Resume home Levemir schedule. Continue ISS. Check a1c. Continue levofloxacin for antimicrobial coverage of pulmonary pathogens. Decrease Solu-Medrol to BID dosing - wheezing decreasing. Encourage IS/Acapella use. Encourage ambulation. Monitor lab. Case discussed with CM. Times spent with patient care 25 minutes. Hospital Course Summary Disclaimer: The visit summary below is not to be considered part of the above Progress Note. Hospital Course: 02/12/17: Admission to CCU This is a 41 YO female that came with worsening bronchospasm and was found to have bilateral infiltates suggestive of Viral URI - PCR did confirm a viral infection. Plan is to admit to the ICU, continue supportive care with BIPAP, steroids antibiotics, pulmonary toilet. Also pt has DM and will have higher BS, so will keep an eye on her BS and use sliding scale to correct it. Diagnosis 1) Asthmatic bronchitis with ? of viral PNA. Pt has hypoxemia - ABG show elevated a-A gradient and Alkalosis (metabolic) with poor respiratory compensation at present. - PCR positive for Rhinovirus - Continue BIPAP - Antibiotics - Levaquin - Solumedrol Q6H + Accuchecks and sliding scale. - Recheck CXR in the AM 2) Type II DM - Continue with lantus 20U/day - Cover with sliding scale as well. 3) HTN - EKG showed inverted T waves in V1 and V2 - TnI negative check TnI x 2 times more and check EKG in the AM. 4) Hypothyoridism - Continue present Rx. - Check TSH in the AM. 5) Hypokalemia with K of 3.1 - Will replace orally and F/U in the AM. PREVENTION DVT - SCD'S PUD - PPI (IV) 02/13/17 Tolerating BiPAP to help respiratory support. Continue with supplemental O2/BiPAP for respiratory support. Add routine Mucinex DM BID to help decrease cough and congestion. Acapella and IS to help pulmonary toilet. Will continue with levofloxacin and Solu-Medrol due to asthma exacerbation with infiltrate. Blood sugars with elevation - likely secondary to steroids. Continue ISS and increase Lantus to 30 units at night. Lorazepam 0.5mg IV q 4 hours prn anxiety due to air hunger. Medical status stabilize to the point patient can transfer to medical floor to continue care. 02/14/17 Breathing feeling easier, but still needing O2. Wheezing decreased. Diflucan 150mg orally x1 to cover oral thrush (pt also worries about risk of developing vaginal yeast problems). Culturelle TID with meals for bowel protection in light of antibiotic use. Wean O2 as able. Restart Lasix. Aspercreme to help chest chest wall pain. Resume home Levemir schedule. Continue ISS. Check a1c. Continue levofloxacin for antimicrobial coverage of pulmonary pathogens. Decrease Solu-Medrol to BID dosing - wheezing decreasing. Encourage IS/Acapella use. Encourage ambulation.
[2017-02-14] MEDS: FUROSEMIDE 20 MG TABLET PO SCH (12:05)
[2017-02-14] MEDS: LACTOBACILLUS (15B cfu) CAPSULE PO SCH ×2 (12:05→17:22)
[2017-02-14] MEDS: IBUPROFEN 200 MG TABLET PO PRN (13:57)
[2017-02-14] MEDS: INSULIN GLARGINE 100unit/ml INJECTION SQ SCH (20:30)
[2017-02-14] MEDS: PRAVASTATIN 40 MG TABLET PO SCH (20:32)
[2017-02-14] MEDS ORDERED: ZOLPIDEM 5 MG TABLET PO ONE (20:45)
[2017-02-15] MEDS: HYDROCODONE/APAP 7.5 MG/325 MG TABLET PO PRN ×2 (02:57→19:28)
[2017-02-15] MEDS: GUAIFENESIN/CODEINE 5ml ORAL LIQUID PO PRN ×2 (02:57→17:19)
[2017-02-15] MEDS: METHYLPREDNISOLONE SOD SUCC 125mg/2ml INJECTION IVP SCH ×2 (02:58→09:02)
[2017-02-15] MEDS: SALINE FLUSH 10ml SYRINGE IVF PRN ×3 (03:01→10:55)
[2017-02-15] MEDS: PANTOPRAZOLE 40 MG TABLET PO SCH (06:59)
[2017-02-15] MEDS: LEVOTHYROXINE 100 MCG TABLET PO SCH (06:59)
[2017-02-15] MEDS: INSULIN REGULAR, HUMAN 100 UNIT/ML INJECTION SQ PRN ×4 (07:00→21:17)
[2017-02-15] MEDS: ALBUTEROL/IPRATROPIUM 2.5mg-0.5mg/3ml NEB ORAL INH SCH ×6 (07:11→19:25)
[2017-02-15] MEDS: INSULIN GLARGINE 100unit/ml INJECTION SQ SCH ×2 (08:46→21:17)
[2017-02-15] MEDS: ESTROGENS, CONJUGATED 0.45 MG TABLET PO SCH (08:59)
[2017-02-15] MEDS: LACTOBACILLUS (15B cfu) CAPSULE PO SCH ×3 (08:59→17:23)
[2017-02-15] MEDS: GUAIFENESIN/D-METHORPHAN 600mg/30mg TABLET PO SCH ×2 (08:59→21:18)
[2017-02-15] MEDS: PREGABALIN 100 MG CAPSULE PO SCH ×3 (09:00→21:18)
[2017-02-15] MEDS: LORATADINE 10 MG TABLET PO SCH (09:00)
[2017-02-15] MEDS: AMLODIPINE 5 MG TABLET PO SCH (09:00)
[2017-02-15] MEDS: FUROSEMIDE 20 MG TABLET PO SCH (09:00)
[2017-02-15] MEDS: SPIRONOLACTONE 25 MG TABLET PO SCH (09:00)
[2017-02-15] MEDS: Venlafaxine XR 37.5 MG CAPSULE (24hr) PO SCH (09:01)
[2017-02-15] MEDS: IBUPROFEN 200 MG TABLET PO PRN ×2 (09:03→17:19)
[2017-02-15] MEDS: LEVOFLOXACIN PB 750 MG/150 ML BAG IV SCH (10:55)
[2017-02-15] MEDS ORDERED: acetaZOLAMIDE 250 MG TABLET PO ONE (13:07)
[2017-02-15] MEDS ORDERED: MAG-AL + SIM ORAL LIQUID 30ml PO PRN (14:02)
--- NOTE | 2017-02-15 14:03 | Progress Note ---
Subjective: F/U: Pneumonia, Acute hypoxic respiratory failure Improving. Breathing still short and notes wheezes, but not as pronounced as prior days. Able to be up and ambulatory more. Less SOA when active. Some cough. No f/c. Notes reflux. Minimal nausea. Eating okay. Bowels moving. Urinating well. Objective Vital signs: Temperature 97.0 F 02/15/17 12:13 Pulse Rate 73 02/15/17 12:13 Respiratory Rate 22 02/15/17 12:13 Blood Pressure 119/67 02/15/17 12:13 Pulse Oximetry 93 02/15/17 12:13 Height/Weight/BMI: Height 1.6 m Weight 132.3 kg Body Mass Index 49.4 - Constitutional Present: well nourished, well developed, morbidly obese, cooperative - Routine HEENT Exam Head: Present: normocephalic, atraumatic Eye: Present: EOMI, PERRL ENT: Present: mucous membranes moist - Routine Respiratory Exam Present: decreased breath sounds, wheezes (End expiratory wheezes bilaterally ) , distant breath sounds, diminished air movement. Absent: respiratory distress - Routine Cardiovascular Exam Present: RRR, no murmur - Routine Abdominal Exam Present: soft, normoactive bowel sounds, non distended, non tender - Routine Extremities Exam Present: edema (Trace bilateral pretibial edema ), pulses intact, normal capillary refill. Absent: cyanosis, clubbing - Routine Musculoskeletal Exam Musculoskeletal: Present: no clubbing or cyanosis, normal strength, normal gait - Routine Skin Exam Present: dry, warm - Routine Neurological Exam Present: alert, oriented X3, CN II-XII intact, moving all extremities, vision grossly intact, hearing grossly intact. Absent: motor deficit - Routine Psychiatric Exam Present: normal affect, normal thought process, cooperative, good insight, good judgment. Absent: anxious, agitated Results - Labs CBC & Chem 7: 02/15/17 04:21 02/15/17 04:21 Microbiology Results: Microbiology 02/12/17 10:40 Peripheral/Iv Start Blood Culture - Preliminary No Growth After 3 Days 02/12/17 10:30 Peripheral/Iv Start Blood Culture - Preliminary No Growth After 3 Days - ABG Interpretation ABG results: 02/13/17 06:25 VBG pH 7.380 VBG pCO2 52 VBG pO2 58 H VBG HCO3 31 H VBG Total CO2 32.4 VBG O2 Saturation 89.0 VBG Base Excess 4.5 H Assessment and Plan GI Prophylaxis: Protonix Assessment and Plan: Assessment Acute hypoxic respiratory failure Rhinovirus - Possible viral pneumonia/possible bacterial Leukocytosis COPD/Asthma LIAS Type II DM - insulin requiring; A1c 9.2% HTN HDL Hypothyroidism Hypokalemia (POA) - resolved GERD Thrush Morbid obesity with BMI 49.4 Plan Stop Solu-Medrol - start prednisone 40mg daily tomorrow. As weight trending up, will give additional 40mg Lasix to help decrease volume. Diamox x1 to prevent contraction alkalosis. Encourage ambulation and activities. Wean O2. Continue levofloxacin - Day #4. Monitor lab. Case discussed with CM. Times spent with patient care 25 minutes. - Time spent with patient 25 - 35 minutes Hospital Course Summary Disclaimer: The visit summary below is not to be considered part of the above Progress Note. Hospital Course: 02/12/17: Admission to CCU This is a 41 YO female that came with worsening bronchospasm and was found to have bilateral infiltates suggestive of Viral URI - PCR did confirm a viral infection. Plan is to admit to the ICU, continue supportive care with BIPAP, steroids antibiotics, pulmonary toilet. Also pt has DM and will have higher BS, so will keep an eye on her BS and use sliding scale to correct it. Diagnosis 1) Asthmatic bronchitis with ? of viral PNA. Pt has hypoxemia - ABG show elevated a-A gradient and Alkalosis (metabolic) with poor respiratory compensation at present. - PCR positive for Rhinovirus - Continue BIPAP - Antibiotics - Levaquin - Solumedrol Q6H + Accuchecks and sliding scale. - Recheck CXR in the AM 2) Type II DM - Continue with lantus 20U/day - Cover with sliding scale as well. 3) HTN - EKG showed inverted T waves in V1 and V2 - TnI negative check TnI x 2 times more and check EKG in the AM. 4) Hypothyoridism - Continue present Rx. - Check TSH in the AM. 5) Hypokalemia with K of 3.1 - Will replace orally and F/U in the AM. PREVENTION DVT - SCD'S PUD - PPI (IV) 02/13/17 Tolerating BiPAP to help respiratory support. Continue with supplemental O2/BiPAP for respiratory support. Add routine Mucinex DM BID to help decrease cough and congestion. Acapella and IS to help pulmonary toilet. Will continue with levofloxacin and Solu-Medrol due to asthma exacerbation with infiltrate. Blood sugars with elevation - likely secondary to steroids. Continue ISS and increase Lantus to 30 units at night. Lorazepam 0.5mg IV q 4 hours prn anxiety due to air hunger. Medical status stabilize to the point patient can transfer to medical floor to continue care. 02/14/17 Breathing feeling easier, but still needing O2. Wheezing decreased. Diflucan 150mg orally x1 to cover oral thrush (pt also worries about risk of developing vaginal yeast problems). Culturelle TID with meals for bowel protection in light of antibiotic use. Wean O2 as able. Restart Lasix. Aspercreme to help chest chest wall pain. Resume home Levemir schedule. Continue ISS. Check a1c. Continue levofloxacin for antimicrobial coverage of pulmonary pathogens. Decrease Solu-Medrol to BID dosing - wheezing decreasing. Encourage IS/Acapella use. Encourage ambulation. 02/15/17 Stop Solu-Medrol - start prednisone 40mg daily tomorrow. As weight trending up, will give additional 40mg Lasix to help decrease volume. Diamox x1 to prevent contraction alkalosis. Encourage ambulation and activities. Wean O2. Continue levofloxacin - Day #4.
[2017-02-15] MEDS ORDERED: FUROSEMIDE 40 MG TABLET PO ONE (16:00)
[2017-02-15] MEDS: CLOTRIMAZOLE 10 MG TROCHE PO SCH ×2 (19:25→21:27)
[2017-02-15] MEDS: PRAVASTATIN 40 MG TABLET PO SCH (21:18)
[2017-02-16] MEDS: HYDROCODONE/APAP 7.5 MG/325 MG TABLET PO PRN ×2 (03:33→16:32)
[2017-02-16] MEDS: GUAIFENESIN/CODEINE 5ml ORAL LIQUID PO PRN ×3 (03:34→21:05)
[2017-02-16] MEDS: LEVOTHYROXINE 100 MCG TABLET PO SCH (06:36)
[2017-02-16] MEDS: INSULIN REGULAR, HUMAN 100 UNIT/ML INJECTION SQ PRN ×4 (06:36→21:04)
[2017-02-16] MEDS: PANTOPRAZOLE 40 MG TABLET PO SCH (06:36)
[2017-02-16] MEDS: ALBUTEROL/IPRATROPIUM 2.5mg-0.5mg/3ml NEB ORAL INH SCH ×4 (07:26→19:16)
[2017-02-16] MEDS: SALINE FLUSH 10ml SYRINGE IVF PRN ×2 (08:23→14:08)
[2017-02-16] MEDS: Venlafaxine XR 37.5 MG CAPSULE (24hr) PO SCH (08:24)
[2017-02-16] MEDS: ESTROGENS, CONJUGATED 0.45 MG TABLET PO SCH (08:24)
[2017-02-16] MEDS: FUROSEMIDE 20 MG TABLET PO SCH (08:24)
[2017-02-16] MEDS: AMLODIPINE 5 MG TABLET PO SCH (08:24)
[2017-02-16] MEDS: GUAIFENESIN/D-METHORPHAN 600mg/30mg TABLET PO SCH ×2 (08:24→21:03)
[2017-02-16] MEDS: PREGABALIN 100 MG CAPSULE PO SCH ×3 (08:25→21:02)
[2017-02-16] MEDS: PredniSONE 20 MG TABLET PO SCH (08:25)
[2017-02-16] MEDS: LORATADINE 10 MG TABLET PO SCH (08:25)
[2017-02-16] MEDS: SPIRONOLACTONE 25 MG TABLET PO SCH (08:25)
[2017-02-16] MEDS: LACTOBACILLUS (15B cfu) CAPSULE PO SCH ×3 (08:25→16:32)
[2017-02-16] MEDS: CLOTRIMAZOLE 10 MG TROCHE PO SCH ×7 (08:25→21:13)
[2017-02-16] MEDS: INSULIN GLARGINE 100unit/ml INJECTION SQ SCH ×2 (08:26→21:04)
[2017-02-16] MEDS: LEVOFLOXACIN PB 750 MG/150 ML BAG IV SCH (10:16)
[2017-02-16] MEDS ORDERED: acetaZOLAMIDE 250 MG TABLET PO ONE (10:28)
--- NOTE | 2017-02-16 11:49 | Progress Note ---
Subjective: F/U: Pneumonia, Acute hypoxic respiratory failure Improving; feeling better in general. Breathing easier and better; less congested and SOA. Mobilizing sputum. Walking more. No f/c. Eating well. Thirsty -drinking a lot. Bowel stable. Urinating well. Has used CPAP in past, but unable to tolerate due to anxiety. Has since returned device. Able to tolerate BiPAP her okay (using 3-5 hours a night). Objective Vital signs: Temperature 96.3 F L 02/16/17 08:05 Pulse Rate 83 02/16/17 08:05 Respiratory Rate 20 02/16/17 08:05 Blood Pressure 137/87 02/16/17 08:05 Pulse Oximetry 93 02/16/17 10:19 Height/Weight/BMI: Height 1.6 m Weight 127.7 kg Body Mass Index 49.4 - Constitutional Present: well nourished, well developed, morbidly obese, cooperative - Routine HEENT Exam Head: Present: normocephalic, atraumatic Eye: Present: EOMI, PERRL ENT: Present: mucous membranes moist - Routine Respiratory Exam Present: decreased breath sounds, wheezes (Faint end expiratory wheeze with forced expiration ), distant breath sounds, diminished air movement. Absent: respiratory distress - Routine Cardiovascular Exam Present: RRR, no murmur - Routine Abdominal Exam Present: soft, normoactive bowel sounds, non distended, non tender. Absent: guarding - Routine Extremities Exam Present: edema (Trace LE ), pulses intact. Absent: cyanosis, clubbing - Routine Musculoskeletal Exam Musculoskeletal: Present: no clubbing or cyanosis, normal strength, normal gait - Routine Skin Exam Present: intact, dry, warm - Routine Psychiatric Exam Present: normal affect, normal thought process, cooperative, good insight, good judgment. Absent: anxious Results - Labs CBC & Chem 7: 02/16/17 04:31 02/16/17 04:31 Microbiology Results: Microbiology 02/12/17 10:40 Peripheral/Iv Start Blood Culture - Preliminary No Growth After 4 Days 02/12/17 10:30 Peripheral/Iv Start Blood Culture - Preliminary No Growth After 4 Days - ABG Interpretation ABG results: 02/13/17 06:25 VBG pH 7.380 VBG pCO2 52 VBG pO2 58 H VBG HCO3 31 H VBG Total CO2 32.4 VBG O2 Saturation 89.0 VBG Base Excess 4.5 H Assessment and Plan (1) Acute respiratory failure with hypoxia Current visit: Yes Status: Acute DVT Prophylaxis: SCD's GI Prophylaxis: Protonix Assessment and Plan: Assessment Acute hypoxic respiratory failure Pneumonia Rhinovirus Leukocytosis COPD/Asthma LISA Type II DM - insulin requiring; A1c 9.2% HTN HDL Hypothyroidism Hypokalemia (POA) - resolved GERD Thrush Morbid obesity with BMI 49.4 Plan Addition IV Lasix this afternoon as weight increased; advised less fluid consumption. Will check overnight oximetry tonight - will need sleep study in outpatient setting. Encourage continued increase in ambulation. Wean O2 - down to 1L at rest. Continue levofloxacin - Day #5. Prednisone at 40mg daily. Monitor lab. Recheck CXR in am. Possibly home tomorrow if continues to do well. Time spent with patient care 25 minutes. Hospital Course Summary Disclaimer: The visit summary below is not to be considered part of the above Progress Note. Hospital Course: 02/12/17: Admission to CCU This is a 41 YO female that came with worsening bronchospasm and was found to have bilateral infiltates suggestive of Viral URI - PCR did confirm a viral infection. Plan is to admit to the ICU, continue supportive care with BIPAP, steroids antibiotics, pulmonary toilet. Also pt has DM and will have higher BS, so will keep an eye on her BS and use sliding scale to correct it. Diagnosis 1) Asthmatic bronchitis with ? of viral PNA. Pt has hypoxemia - ABG show elevated a-A gradient and Alkalosis (metabolic) with poor respiratory compensation at present. - PCR positive for Rhinovirus - Continue BIPAP - Antibiotics - Levaquin - Solumedrol Q6H + Accuchecks and sliding scale. - Recheck CXR in the AM 2) Type II DM - Continue with lantus 20U/day - Cover with sliding scale as well. 3) HTN - EKG showed inverted T waves in V1 and V2 - TnI negative check TnI x 2 times more and check EKG in the AM. 4) Hypothyoridism - Continue present Rx. - Check TSH in the AM. 5) Hypokalemia with K of 3.1 - Will replace orally and F/U in the AM. PREVENTION DVT - SCD'S PUD - PPI (IV) 02/13/17 Tolerating BiPAP to help respiratory support. Continue with supplemental O2/BiPAP for respiratory support. Add routine Mucinex DM BID to help decrease cough and congestion. Acapella and IS to help pulmonary toilet. Will continue with levofloxacin and Solu-Medrol due to asthma exacerbation with infiltrate. Blood sugars with elevation - likely secondary to steroids. Continue ISS and increase Lantus to 30 units at night. Lorazepam 0.5mg IV q 4 hours prn anxiety due to air hunger. Medical status stabilize to the point patient can transfer to medical floor to continue care. 02/14/17 Breathing feeling easier, but still needing O2. Wheezing decreased. Diflucan 150mg orally x1 to cover oral thrush (pt also worries about risk of developing vaginal yeast problems). Culturelle TID with meals for bowel protection in light of antibiotic use. Wean O2 as able. Restart Lasix. Aspercreme to help chest chest wall pain. Resume home Levemir schedule. Continue ISS. Check a1c. Continue levofloxacin for antimicrobial coverage of pulmonary pathogens. Decrease Solu-Medrol to BID dosing - wheezing decreasing. Encourage IS/Acapella use. Encourage ambulation. 02/15/17 Stop Solu-Medrol - start prednisone 40mg daily tomorrow. As weight trending up, will give additional 40mg Lasix to help decrease volume. Diamox x1 to prevent contraction alkalosis. Encourage ambulation and activities. Wean O2. Continue levofloxacin - Day #4. 02/16/17 Addition IV Lasix this afternoon as weight increased; advised less fluid consumption. Will check overnight oximetry tonight - will need sleep study in outpatient setting. Encourage continued increase in ambulation. Wean O2 - down to 1L at rest. Continue levofloxacin - Day #5. Prednisone at 40mg daily. Monitor lab. Recheck CXR in am. Possibly home tomorrow if continues to do well.
[2017-02-16] MEDS ORDERED: FUROSEMIDE 40 MG/4 ML INJECTION IVP ONE (14:00)
[2017-02-16] MEDS ORDERED: LISINOPRIL 5 MG TABLET PO SCH (21:00)
[2017-02-16] MEDS: PRAVASTATIN 40 MG TABLET PO SCH (21:03)
[2017-02-17] MEDS: PANTOPRAZOLE 40 MG TABLET PO SCH ×2 (04:44→06:02)
[2017-02-17] MEDS: GUAIFENESIN/CODEINE 5ml ORAL LIQUID PO PRN ×2 (04:44→10:46)
[2017-02-17] MEDS: LEVOTHYROXINE 100 MCG TABLET PO SCH ×2 (04:45→06:02)
[2017-02-17] MEDS: ALBUTEROL/IPRATROPIUM 2.5mg-0.5mg/3ml NEB ORAL INH SCH ×3 (07:19→17:02)
[2017-02-17] MEDS: INSULIN REGULAR, HUMAN 100 UNIT/ML INJECTION SQ PRN ×2 (07:26→11:52)
[2017-02-17 07:48] VITALS: BP 119/79; PULSE 75; TEMP 96.3
[2017-02-17 08:19] VITALS: BMI 48.3
[2017-02-17] MEDS: INSULIN GLARGINE 100unit/ml INJECTION SQ SCH (08:21)
[2017-02-17] MEDS: PREGABALIN 100 MG CAPSULE PO SCH ×2 (08:22→14:16)
[2017-02-17] MEDS: ESTROGENS, CONJUGATED 0.45 MG TABLET PO SCH (08:22)
[2017-02-17] MEDS: AMLODIPINE 5 MG TABLET PO SCH (08:22)
[2017-02-17] MEDS: GUAIFENESIN/D-METHORPHAN 600mg/30mg TABLET PO SCH (08:22)
[2017-02-17] MEDS: CLOTRIMAZOLE 10 MG TROCHE PO SCH ×3 (08:22→14:11)
[2017-02-17] MEDS: SPIRONOLACTONE 25 MG TABLET PO SCH (08:23)
[2017-02-17] MEDS: PredniSONE 20 MG TABLET PO SCH (08:23)
[2017-02-17] MEDS: Venlafaxine XR 37.5 MG CAPSULE (24hr) PO SCH (08:23)
[2017-02-17] MEDS: FUROSEMIDE 20 MG TABLET PO SCH (08:23)
[2017-02-17] MEDS: LACTOBACILLUS (15B cfu) CAPSULE PO SCH ×2 (08:23→11:52)
[2017-02-17] MEDS: LORATADINE 10 MG TABLET PO SCH (08:23)
[2017-02-17] MEDS ORDERED: ALBUTEROL 2.5mg/3ml (0.083%) NEB AEROSOL PRN (08:30)
[2017-02-17] MEDS: LEVOFLOXACIN PB 750 MG/150 ML BAG IV SCH (11:05)
[2017-02-17] MEDS: SALINE FLUSH 10ml SYRINGE IVF PRN (11:06)
[2017-02-17 11:29] VITALS: O2SAT 93
--- NOTE | 2017-02-17 11:44 | XRay Report ---
Indication: F/U infiltrate PROCEDURE: XR chest 2V: Encounter: Initial Comparison: 02/13/2017 Findings: There is greater megaly and pulmonary vascular congestion with improvement in the interstitial edema from prior study. No definite pleural effusion. Trachea is midline. No pneumothorax. No subdiaphragmatic free air. Impression: Improved CHF with mild cardiomegaly. .
--- NOTE | 2017-02-17 13:51 | Progress Note ---
Subjective: F/U: Pneumonia, Acute hypoxic respiratory failure Doing well today. Breathing improving. Less cough, congestion and SOA. Did not qualify for home O2, but did meet qualification for O2 at 2L when sleeping. Ambulating well. Eating well. No f/c. Feels ready to go home. Objective Vital signs: Temperature 96.3 F L 02/17/17 07:47 Pulse Rate 75 02/17/17 07:47 Respiratory Rate 14 02/17/17 11:24 Blood Pressure 119/79 02/17/17 07:47 Pulse Oximetry 93 02/17/17 11:24 Height/Weight/BMI: Height 1.6 m Weight 123.831 kg Body Mass Index 48.3 - Constitutional Present: no acute distress, well nourished, well developed, morbidly obese, cooperative - Routine HEENT Exam Head: Present: normocephalic, atraumatic Eye: Present: EOMI, PERRL ENT: Present: mucous membranes moist - Routine Respiratory Exam Present: decreased breath sounds, wheezes (faint end expiratory wheezes with forced expiration. ), distant breath sounds, diminished air movement. Absent: respiratory distress, crackles - Routine Cardiovascular Exam Present: RRR, no murmur - Routine Abdominal Exam Present: soft, normoactive bowel sounds, non distended, non tender. Absent: guarding - Routine Extremities Exam Present: no edema, pulses intact. Absent: cyanosis, clubbing - Routine Musculoskeletal Exam Musculoskeletal: Present: no clubbing or cyanosis, normal strength, normal gait - Routine Skin Exam Present: dry, warm - Routine Neurological Exam Present: alert, oriented X3, CN II-XII intact, moving all extremities, vision grossly intact, hearing grossly intact. Absent: motor deficit - Routine Psychiatric Exam Present: normal affect, normal thought process, cooperative. Absent: anxious, agitated Results - Labs CBC & Chem 7: 02/16/17 04:31 02/16/17 04:31 Microbiology Results: Microbiology 02/12/17 10:40 Peripheral/Iv Start Blood Culture - Final No Growth After 5 Days 02/12/17 10:30 Peripheral/Iv Start Blood Culture - Final No Growth After 5 Days - ABG Interpretation ABG results: 02/13/17 06:25 VBG pH 7.380 VBG pCO2 52 VBG pO2 58 H VBG HCO3 31 H VBG Total CO2 32.4 VBG O2 Saturation 89.0 VBG Base Excess 4.5 H Assessment and Plan (1) Acute respiratory failure with hypoxia Current visit: Yes Status: Acute DVT Prophylaxis: SCD's Assessment and Plan: Assessment Acute hypoxic respiratory failure Pneumonia Rhinovirus Leukocytosis COPD/Asthma LISA Nocturnal hypoxia Type II DM - insulin requiring; A1c 9.2% HTN HDL Hypothyroidism Hypokalemia (POA) - resolved GERD Thrush Morbid obesity with BMI 49.4 Plan Overall showing improvement. May discharge to home. Overnight oximetry shows need for O2 2L when sleeping. She does not show need for O2 at rest when awake or when ambulating. Has had 6 days of Levaquin - will continue ciprofloxacin one more day. Prednisone 20mg daily for the next 4 days - will finish the prednisone she was started on GASTROENTEROLOGY TECHNICIAN. Mucinex DM BID for 1 week, then prn cough/congestion. Use IS and Acapella BID for 1 week, then as needed. Lisinopril 5mg nightly to help BP and provide renal protection from diabetes. Advised to watch for dry cough. Will need BMP in 1 week secondary to SHENA use to monitor potassium and creatinine. Home health has been set up for patient. [facility] Check BMP. See orders for details. Case discussed with CM. Time spent with patient care and discharge greater than 30 minutes. - Time spent with patient discharge greater than 30 minutes Hospital Course Summary Disclaimer: The visit summary below is not to be considered part of the above Progress Note. Hospital Course: 02/12/17: Admission to CCU This is a 41 YO female that came with worsening bronchospasm and was found to have bilateral infiltates suggestive of Viral URI - PCR did confirm a viral infection. Plan is to admit to the ICU, continue supportive care with BIPAP, steroids antibiotics, pulmonary toilet. Also pt has DM and will have higher BS, so will keep an eye on her BS and use sliding scale to correct it. Diagnosis 1) Asthmatic bronchitis with ? of viral PNA. Pt has hypoxemia - ABG show elevated a-A gradient and Alkalosis (metabolic) with poor respiratory compensation at present. - PCR positive for Rhinovirus - Continue BIPAP - Antibiotics - Levaquin - Solumedrol Q6H + Accuchecks and sliding scale. - Recheck CXR in the AM 2) Type II DM - Continue with lantus 20U/day - Cover with sliding scale as well. 3) HTN - EKG showed inverted T waves in V1 and V2 - TnI negative check TnI x 2 times more and check EKG in the AM. 4) Hypothyoridism - Continue present Rx. - Check TSH in the AM. 5) Hypokalemia with K of 3.1 - Will replace orally and F/U in the AM. PREVENTION DVT - SCD'S PUD - PPI (IV) 02/13/17 Tolerating BiPAP to help respiratory support. Continue with supplemental O2/BiPAP for respiratory support. Add routine Mucinex DM BID to help decrease cough and congestion. Acapella and IS to help pulmonary toilet. Will continue with levofloxacin and Solu-Medrol due to asthma exacerbation with infiltrate. Blood sugars with elevation - likely secondary to steroids. Continue ISS and increase Lantus to 30 units at night. Lorazepam 0.5mg IV q 4 hours prn anxiety due to air hunger. Medical status stabilize to the point patient can transfer to medical floor to continue care. 02/14/17 Breathing feeling easier, but still needing O2. Wheezing decreased. Diflucan 150mg orally x1 to cover oral thrush (pt also worries about risk of developing vaginal yeast problems). Culturelle TID with meals for bowel protection in light of antibiotic use. Wean O2 as able. Restart Lasix. Aspercreme to help chest chest wall pain. Resume home Levemir schedule. Continue ISS. Check a1c. Continue levofloxacin for antimicrobial coverage of pulmonary pathogens. Decrease Solu-Medrol to BID dosing - wheezing decreasing. Encourage IS/Acapella use. Encourage ambulation. 02/15/17 Stop Solu-Medrol - start prednisone 40mg daily tomorrow. As weight trending up, will give additional 40mg Lasix to help decrease volume. Diamox x1 to prevent contraction alkalosis. Encourage ambulation and activities. Wean O2. Continue levofloxacin - Day #4. 02/16/17 Addition IV Lasix this afternoon as weight increased; advised less fluid consumption. Will check overnight oximetry tonight - will need sleep study in outpatient setting. Encourage continued increase in ambulation. Wean O2 - down to 1L at rest. Continue levofloxacin - Day #5. Prednisone at 40mg daily. Monitor lab. Recheck CXR in am. Possibly home tomorrow if continues to do well. 02/17/17 Overall showing improvement. May discharge to home. Overnight oximetry shows need for O2 2L when sleeping. She does not show need for O2 at rest when awake or when ambulating. Has had 6 days of Levaquin - will continue ciprofloxacin one more day. Prednisone 20mg daily for the next 4 days - will finish the prednisone she was started on GASTROENTEROLOGY TECHNICIAN. Mucinex DM BID for 1 week, then prn cough/congestion. Use IS and Acapella BID for 1 week, then as needed. Lisinopril 5mg nightly to help BP and provide renal protection from diabetes. Advised to watch for dry cough. Will need BMP in 1 week secondary to SHENA use to monitor potassium and creatinine. Home health has been set up for patient. [facility] week Check BMP. See orders for details.
[2017-02-17] MEDS: HYDROCODONE/APAP 7.5 MG/325 MG TABLET PO PRN (14:16)
--- NOTE | 2017-02-17 14:19 | Discharge Summary ---
Discharge Information Date of admission: 02/12/17 10:21 Anticipated date of discharge: 02/17/17 Attending Physician: Slade Alfaro MD Primary care physician: Ani Valencia APRN Consults: Dietary Consult: DM, 2 GLUCOSE OVER 180 - Discharge Diagnosis (1) Acute respiratory failure with hypoxia Status: Acute Discharge Diagnosis: Discharge diagnosis Acute hypoxic respiratory failure Associated conditions and complications Pneumonia Rhinovirus Leukocytosis COPD/Asthma with acute exacerbation. LISA with history of difficulty tolerated CPAP Nocturnal hypoxia Type II DM - insulin requiring; A1c 9.2% HTN HDL Hypothyroidism Hypokalemia (POA) - resolved GERD Thrush Morbid obesity with BMI 49.4 - Laboratory Labs: Admit Lab 02/12/17 07:56 WBC 27.7 H* Hgb 12.5 Hct 39.5 MCV 80.3 Plt Count 359 Neutrophils % (Manual) 70.0 H Band Neutrophils % 1.0 Lymphocytes % (Manual) 22.0 L Admit Lab 02/12/17 07:56 Sodium 141 Potassium 3.1 L Chloride 99 Carbon Dioxide 29 Anion Gap 13 BUN 8.0 Creatinine 0.6 L GFR Calculation 111 Glucose 177 H Calculated Osmolality 273 Calcium 9.2 Total Bilirubin 0.50 AST 25 ALT 32 Troponin I < 0.012 B-Natriuretic Peptide 220 H Other Lab 02/13/17 02/13/17 02/15/17 05:09 05:09 04:21 Hemoglobin A1c 9.2 H TSH 0.25 L Free T4 1.13 02/16/17 04:31 02/16/17 04:31 - Microbiology Microbiology 02/12/17 10:40 Peripheral/Iv Start Blood Culture - Final No Growth After 5 Days 02/12/17 10:30 Peripheral/Iv Start Blood Culture - Final No Growth After 5 Days - Radiology Radiology: Date of Exam: 02/12/17 PROCEDURE: CHEST 2-VIEWS UPRIGHT (PA & LAT) COMPARISON: February 08, 2017 FINDINGS: New patchy areas of bilateral airspace consolidation. No pleural effusion or pneumothorax. Heart size and mediastinal contours are stable. Post-sternotomy changes. Impression: New bilateral airspace disease could be due to atypical/viral pneumonia. History of Present Illness HPI: Called to examine pt in the ED due to acute bronchospasm and respiratory failure. Pt was on BiPap when I saw her in the ED. Pt was mentally clear, awake alert and oriented. She states she was smoking till last week when she decided to quit. Pt got worse over the last 24 hrs - denies any household contacts, has not been [place]ing abroad, denies having exotic pets, gives H.O asthma in the past. Pt is a FULL CODE> For complete details of the H&P refer to that document. Objective Vital signs: Temperature 96.3 F L 02/17/17 07:47 Pulse Rate 75 02/17/17 07:47 Respiratory Rate 14 02/17/17 11:24 Blood Pressure 119/79 02/17/17 07:47 Pulse Oximetry 93 02/17/17 11:24 Height/Weight/BMI: Height 1.6 m Weight 123.831 kg Body Mass Index 48.3 Hospital Course This is a general summary of the patient's hospital course. For more details refer to the complete medical record. Hospital course: 02/12/17: Admission to CCU This is a 41 YO female that came with worsening bronchospasm and was found to have bilateral infiltates suggestive of Viral URI - PCR did confirm a viral infection. Plan is to admit to the ICU, continue supportive care with BIPAP, steroids antibiotics, pulmonary toilet. Also pt has DM and will have higher BS, so will keep an eye on her BS and use sliding scale to correct it. Diagnosis 1) Asthmatic bronchitis with ? of viral PNA. Pt has hypoxemia - ABG show elevated a-A gradient and Alkalosis (metabolic) with poor respiratory compensation at present. - PCR positive for Rhinovirus - Continue BIPAP - Antibiotics - Levaquin - Solumedrol Q6H + Accuchecks and sliding scale. - Recheck CXR in the AM 2) Type II DM - Continue with lantus 20U/day - Cover with sliding scale as well. 3) HTN - EKG showed inverted T waves in V1 and V2 - TnI negative check TnI x 2 times more and check EKG in the AM. 4) Hypothyoridism - Continue present Rx. - Check TSH in the AM. 5) Hypokalemia with K of 3.1 - Will replace orally and F/U in the AM. PREVENTION DVT - SCD'S PUD - PPI (IV) 02/13/17 Tolerating BiPAP to help respiratory support. Continue with supplemental O2/BiPAP for respiratory support. Add routine Mucinex DM BID to help decrease cough and congestion. Acapella and IS to help pulmonary toilet. Will continue with levofloxacin and Solu-Medrol due to asthma exacerbation with infiltrate. Blood sugars with elevation - likely secondary to steroids. Continue ISS and increase Lantus to 30 units at night. Lorazepam 0.5mg IV q 4 hours prn anxiety due to air hunger. Medical status stabilize to the point patient can transfer to medical floor to continue care. 02/14/17 Breathing feeling easier, but still needing O2. Wheezing decreased. Diflucan 150mg orally x1 to cover oral thrush (pt also worries about risk of developing vaginal yeast problems). Culturelle TID with meals for bowel protection in light of antibiotic use. Wean O2 as able. Restart Lasix. Aspercreme to help chest chest wall pain. Resume home Levemir schedule. Continue ISS. Check a1c. Continue levofloxacin for antimicrobial coverage of pulmonary pathogens. Decrease Solu-Medrol to BID dosing - wheezing decreasing. Encourage IS/Acapella use. Encourage ambulation. 02/15/17 Stop Solu-Medrol - start prednisone 40mg daily tomorrow. As weight trending up, will give additional 40mg Lasix to help decrease volume. Diamox x1 to prevent contraction alkalosis. Encourage ambulation and activities. Wean O2. Continue levofloxacin - Day #4. 02/16/17 Addition IV Lasix this afternoon as weight increased; advised less fluid consumption. Will check overnight oximetry tonight - will need sleep study in outpatient setting. Encourage continued increase in ambulation. Wean O2 - down to 1L at rest. Continue levofloxacin - Day #5. Prednisone at 40mg daily. Monitor lab. Recheck CXR in am. Possibly home tomorrow if continues to do well. 02/17/17 Overall showing improvement. May discharge to home. Overnight oximetry shows need for O2 2L when sleeping. She does not show need for O2 at rest when awake or when ambulating. Has had 6 days of Levaquin - will continue ciprofloxacin one more day. Prednisone 20mg daily for the next 4 days - will finish the prednisone she was started on [employer]. Mucinex DM BID for 1 week, then prn cough/congestion. Use IS and Acapella BID for 1 week, then as needed. Lisinopril 5mg nightly to help BP and provide renal protection from diabetes. Advised to watch for dry cough. Will need BMP in 1 week secondary to SHENA use to monitor potassium and creatinine. Home health has been set up for patient. [facility] Check BMP. See orders for details. Time spent with patient: discharge greater than 30 minutes DVT Prophylaxis: SCD's Discharge Plan - Med Rec/Dispo Referrals/Follow Up: Ani Valencia APRN [Family Provider] - 1 Week (Hospital follow up for pneumonia/asthma exacerbation. Check BMP secondary to initiation of SHENA inhibitor. ) [facility] Instructions: COPD (Chronic Obstructive Pulmonary Disease) (GEN), Hypoxemia (GEN) Prescriptions: New Albuterol/Ipratropium [Duoneb] 3 ml ORAL INH RTQID #1 box Guaifenesin/Codeine Phosphate [Guaifenesin-Codeine Syrup] 5 ml PO Q6H PRN # 120 ml PRN Reason: Cough /Congestion Guaifenesin/Dm [Mucinex Dm] 1 tab PO BID #14 tablet Ibuprofen [Motrin] 400 mg PO Q4H PRN tablet PRN Reason: Pain Lisinopril [Prinivil] 5 mg PO HS #30 tab Mag-Al + Sim Oral Liq [Maalox Plus] 30 ml PO Q3H PRN #1 bottle PRN Reason: Reflux PredniSONE [Deltasone] 29 mg PO WB 4 Days tablet Ciprofloxacin [Cipro] 500 mg PO BID #2 tab Continue Cholecalciferol (Vitamin D3) [Vitamin D3] 5,000 unit PO DAILY Brexpiprazole [Rexulti] 4 mg PO DAILY Loratadine [Claritin] 10 mg PO DAILY Linagliptin [Tradjenta] 5 mg PO DAILY Pantoprazole Tab [Protonix Tab] 40 mg PO ACB Amlodipine [Norvasc] 5 mg PO DAILY Venlafaxine HCl [Venlafaxine HCl ER] 37.5 mg PO DAILY Levothyroxine Sodium 100 mcg PO ACB Furosemide [Lasix] 20 mg PO DAILY Chlorthalidone 25 mg PO DAILY Hydrocodone/APAP 7.5/325 [[place] 7.5/325] 1 tab PO Q6HPRN PRN PRN Reason: Pain Hydrocortisone 2.5% Cream [Anusol-Hc 2.5% Cream] 1 applic RECTALLY BID PRN # 30 g PRN Reason: Pain Spironolactone [Aldactone] 25 mg PO DAILY Estrogens, Conjugated [Premarin] 0.45 mg PO DAILY Pregabalin [Lyrica] 200 mg PO TID Hydrocortisone 1% Cream [Cortizone-10 Cream] 1 applic TOP PRN PRN PRN Reason: Prn Orders Toujeo Solostar (insulin glargine) 300 unit/mL (1.5 mL) SQ PEN See Label Instructions SQ Q24H Ambien (zolpidem) 10 mg tablet 10 mg PO HS PRN exenatide ER 2 mg/0.65 mL subcutaneous pen injector 2 mg SQ Q7D hydroxyzine pamoate 50 mg capsule PO TID PRN cap Changed Pravastatin Sodium [Pravachol] 40 mg PO HS #0 Discontinued Potassium Chloride [K-Dur] 20 meq PO WB PredniSONE [Deltasone] 20 mg PO BIDWM #10 tab Discharge Instructions/Outpatient Orders: Final Provider Discharge Instructions Location: Determined By Patient - Disposition [facility] - Attestation Attestation Narrative: 02/17/17 14:36 I have independently interviewed and examined patient prior to discharge. See my progress note from today for details. Medically stable for discharge to home.
[2017-02-17] MEDS ORDERED: INHALER ASSIST DEVICE (Optichamber) MC ONE (16:30)
[2017-02-17 16:40] VITALS: RESP 16
[2017-02-17] MEDS ORDERED: Ipatropium/Albuterol 20/100mcg INHALER (4gm) ORAL INH SCH (19:00)
--- NOTE | 2017-02-18 16:05 | Right on Track Program ---
Right on Track Program Date of Discharge: 02/17/17 Home Medications: Home Medications Medication Instructions Recorded Confirmed Amlodipine [Norvasc] 5 mg PO DAILY 01/12/17 02/12/17 Brexpiprazole [Rexulti] 4 mg PO DAILY 01/12/17 02/12/17 Chlorthalidone 25 mg PO DAILY 01/12/17 02/12/17 Cholecalciferol (Vitamin D3) 5,000 unit PO DAILY 01/12/17 02/12/17 [Vitamin D3] Estrogens, Conjugated [Premarin] 0.45 mg PO DAILY 01/12/17 02/12/17 Furosemide [Lasix] 20 mg PO DAILY 01/12/17 02/12/17 Levothyroxine Sodium 100 mcg PO ACB 01/12/17 02/12/17 Linagliptin [Tradjenta] 5 mg PO DAILY 01/12/17 02/12/17 Loratadine [Claritin] 10 mg PO DAILY 01/12/17 02/12/17 Pantoprazole Tab [Protonix Tab] 40 mg PO ACB 01/12/17 02/12/17 Pregabalin [Lyrica] 200 mg PO TID 01/12/17 02/12/17 Spironolactone [Aldactone] 25 mg PO DAILY 01/12/17 02/12/17 Venlafaxine HCl [Venlafaxine HCl 37.5 mg PO DAILY 01/12/17 02/12/17 ER] Hydrocodone/APAP 7.5/325 [[place] 1 tab PO Q6HPRN PRN 01/13/17 02/12/17 7.5/325] Hydrocortisone 1% Cream 1 applic TOP PRN PRN 01/25/17 02/12/17 [Cortizone-10 Cream] Ambien (zolpidem) 10 mg tablet 10 mg PO HS PRN 02/13/17 Touish Solostar (insulin glargine) See Label Instructions SQ Q24H 02/13/17 300 unit/mL (1.5 mL) SQ PEN exenatide ER 2 mg/0.65 mL 2 mg SQ Q7D 02/13/17 subcutaneous pen injector hydroxyzine pamoate 50 mg capsule PO TID PRN cap 02/13/17 Previous Rx's Medication Instructions Recorded Hydrocortisone 2.5% Cream 1 applic RECTALLY BID PRN #30 g 01/12/17 [Anusol-Hc 2.5% Cream] Albuterol/Ipratropium [Duoneb] 3 ml ORAL INH RTQID #1 box 02/17/17 Ciprofloxacin [Cipro] 500 mg PO BID #2 tab 02/17/17 Guaifenesin/Codeine Phosphate 5 ml PO Q6H PRN #120 ml 02/17/17 [Guaifenesin-Codeine Syrup] Guaifenesin/Dm [Mucinex Dm] 1 tab PO BID #14 tablet 02/17/17 Ibuprofen [Motrin] 400 mg PO Q4H PRN tablet 02/17/17 Lisinopril [Prinivil] 5 mg PO HS #30 tab 02/17/17 Mag-Al + Sim Oral Liq [Maalox Plus] 30 ml PO Q3H PRN #1 bottle 02/17/17 Pravastatin Sodium [Pravachol] 40 mg PO HS #0 02/17/17 PredniSONE [Deltasone] 29 mg PO WB 4 Days tablet 02/17/17 - Right on Track Program 24 hour phone call Date: 02/18/17 Right on Track Program: 24 Hour Follow-Up Discharge Summary Received: Yes Care Plan Received: Yes Follow Up: Follow Up Appointment Scheduled (Dr. Alexis on 02/25/17 at 9:30) Education: Diagnosis Education Reviewed, Education Provided To Caregiver ( regarding use of Combivent inhalers) [facility] Paramedicine Fall Intervention: No Referral: Case Management, Primary Care Physician Comments: LACE = 12 I called Laverne on 02/18/17. She reports that she's still very short of breath - her home oxygen wasn't delivered as planned and the company told her it won't be delivered until next week. She doesn't have her nebulizer but she does have combivent inhaler, which she's using QID - I told her if her symptoms are severe she can use it every 2 hours, but she should resume the QID schedule as able. I also informed her that ideally, this isn't a daily medication, but one that she will use more frequently during illness. She is using her Advair inhaler as well. She continues to have a cough. She had some of the Rx at home already - ie already had Prednisone so is taking that, and she was able to fill Cipro, so only has one more day of the abx. Her sister went to the pharmacy as we were speaking to orange picker her other medications. She denies any questions on her discharge instructions. Discussed With Patient and Caregiver: Yes Recommendations For Follow-up: 1. I spoke with CM regarding oxygen delivery - she qualified for nocturnal oxygen, but since she's already on CPAP at home she needs titration studies before oxygen can be prescribed. I called her back to let her know this. 2. We sent a new note to have the nebulizer delivered tonight (02/18) 3. Home visit on 02/23/17 4. F/U with Dr. Alexis as planned [id number] Visit Date: 02/23/17 Right on Track Program: 7-14 Day [id number] Discharge Summary Received: Yes Care Plan Received: Yes Follow Up: Follow Up Appointment Scheduled ( on 02/25/17) Education: Diagnosis Education Reviewed, Education Provided To Caregiver Referral: Social Work, Financial Services, Primary Care Physician, Home Health Comments: I visited Laverne on 02/23/17. Her sister was also present (she took FMLA to help Laverne while she recovers). Laverne reports that she's felt miserable since last night - she has chest heaviness/pressure, neck pain, heartburn, nausea and vomiting, and more shortness of breath. She admits to having mild chest pressure since being discharged from the hospital, but it has been much worse since last night. It's been constant, and movement, palpation, or deep breathing do not exacerbate her pain. She reports increased SOA as well, and difficulty with her ADLs because of dyspnea. She had diarrhea yesterday, which has resolved, but has had nausea all day and has vomited twice today. She has only been able to drink about 4 oz of water all day. She also has severe heartburn. She used to take a PPI, but her [employer] insurance hasn't come through yet so she hasn't been on it for a while (along with numerous other, mostly psychiatric, meds). She admits to having anxiety and believes that her anxiety plays some role in her current symptoms. She is using her Combivent inhaler QID. The nebulizer has not been delivered, again due to insurance issues. Finances represent a large barrier to her health - she cannot afford her medications without insurance, yet her chronic symptoms are uncontrolled without her medications. Her sister called and requested her CMS application be changed to "urgent". She is also nearly out of her long acting insulin, which is concerning to her since Toujeo has been particularly effective in controlling her sugars. She also reports insomnia since discharge home - she's only been able to catnap. She is finishing leftover Rx Ambien and when that's done she will switch to Trazodone. Her sister also commented that she is more worried about her today - her symptoms are more severe. Objective: VS: BP 140/86; HR 102; Sat 96% room air; RR 20 Gen: A&O x3, NAD HEENT: Sclera anicteric; mouth edentulous, no thrush. CV: RRR, distal pulses intact Lungs: CTAB, though later during interview she began to have mild expiratory wheezes that resolved spontaneously. Abd: obese Ext: Clubbing to fingers and toes; trace pedal edema. Education: We discussed the pathophysiology of COPD. We discussed her risk factors for CAD. We reviewed the relationship between depression and chronic illness, and I congratulated her on being smoke free x 11 days and trying to adopt a healthier lifestyle. We reviewed all of her symptoms, and the risks of going to the ED for evaluation vs. staying home. Discussed With Patient and Caregiver: Yes Recommendations For Follow-up: 1. Will ask CM to f/u on CMS application. Her financial status is her primary barrier to achieving pharmaceutical-related primary/secondary prevention. There are multiple medications that Laverne has not been able to fill. 2. Laverne and her sister made an informed decision to proceed to the ED for evaluation given her chest pressure, n/v, neck pain, SOA, and heartburn. I called the ED to let the provider know of the situation. 3. She has a f/u appt with LISA Valencia at on 02/25/17. 4. Continue to encourage smoking cessation and lifestyle changes. Consider f/u with [facility].
--- NOTE | 2017-02-18 16:56 | Progress Note ---
Progress Note: DX: COPD, asthma Laverne needs a nebulizer for home use to manage symptoms of COPD and asthma. Nebulizer use and medication indication were discussed with her. Medication: DuoNeb 3 mL oral inhalation QID. PENNY: 99 months.
== END 2017-02-17 16:30 | disposition home health service (06) | DRG 193 ==
LOC: ED 06:58 → MED 10:21 → CCU 10:31 → MED 02-13 13:43
PROVIDERS: ADMIT Internal Medicine; ATTEND Hospitalist